=== PATIENT | male | born 1945 | race Hispanic/Latino ===

== ENCOUNTER → 2025-01-31 | Day surgery (SDC) | payer MEDICARE ==
[2025-01-24 10:20] LABS: BASOPHILS % 0.3 % (0.0-1.0); EOSINOPHILS % 3.5 % (0.0-6.0); LYMPHOCYTES % 40.6 % (18.0-39.1); MONOCYTES % 8.3 % (4.4-11.3); NEUTROPHILS % 47.0 % (38.7-80.0); RED CELL DISTRIBUTION WIDTH 14.6 % (11.7-14.4)
[2025-01-24 10:35] LABS: EST GLOMERULAR FILTRATION RATE 81.0 ML/MIN (>=60)
[~2025-01-31] MED LIST: ACETAMINOPHEN 1000 MG/100 ML 100 ML IV ONE; ALTOPREV40 MG PO; ASPIRIN81 MG PO; ENALAPRIL MALE2.5 MG PO; EPHEDRINE SULFATE INJ 50 MG/ML VIAL ONE; FENTANYL CITRATE/PF 100MCG/2 ML INJ ONE; GLIMEPIRIDE4 MG PO; HYDROCODONE/APAP 7.5MG-325MG 1 EA TAB ONE; LINZESS145 MCG PO; METFORMIN HCL1000 MG PO; PIOGLITAZONE HC45 MG PO; PRESERVISION A1 EAC3 PO; PROPOFOL IV EMULSION 10 MG/ML 20 ML VIAL ONE; QUETIAPINE FUMA25 MG PO; ROCURONIUM BROMIDE 1 ML IV ONE; SEVOFLURANE INHAL SOLN 250 ML PEN BTL ONE; SUGAMMADEX SODIUM 200 MG/2 ML VIAL IV ONE; ZETIA10 MG PO
[2025-01-31] MEDS: LACTATED RINGER'S 1,000 ML ONE (08:11)
[2025-01-31 11:54] VITALS: TEMP 97
[2025-01-31] MEDS: FENTANYL CITRATE/PF 100MCG/2 ML INJ ONE (12:25)
[2025-01-31] MEDS: HYDROCODONE/APAP 7.5MG-325MG 1 EA TAB PO ONE (13:00)
[2025-01-31 13:25] VITALS: BP 142/79; PULSE 68; RESP 18; O2SAT 99
== END | disposition home or self-care (01) ==
LOC: OR 07:24
PROVIDERS: ATTEND Surgery
DX: K80.10 Calculus of gallbladder with chronic cholecystitis without obstruction (principal); K66.0 Peritoneal adhesions (postprocedural) (postinfection); I10 Essential (primary) hypertension; E78.5 Hyperlipidemia, unspecified; E11.9 Type 2 diabetes mellitus without complications; Z79.84 Long term (current) use of oral hypoglycemic drugs; Z01.810 Encounter for preprocedural cardiovascular examination; Z01.812 Encounter for preprocedural laboratory examination; Z01.818 Encounter for other preprocedural examination; Z79.899 Other long term (current) drug therapy; Z79.82 Long term (current) use of aspirin
CPT/HCPCS: 36415 ×2; 47562; 71046; 80053; 82948; 85025; 88304; 93005; C1766; J0131; J2704; J3010; J7121